=== PATIENT | male | born 1995 | race Caucasian/White ===

== ENCOUNTER 2024-05-23 16:19 | Emergency (ER) | payer OTHER, SELFPAY ==
[2024-05-23 16:22] VITALS: BP 136/95; PULSE 130; RESP 24; TEMP 37; O2SAT 99; BMI 21.7
--- NOTE | 2024-05-23 16:28 | ED.CHESTPAIN ---
HPI - Chest Pain General Time Seen by Provider: 16:28 Date Seen: 05/28/24 Chief Complaint: Chest Pain Stated Complaint: fall - rib pain - SOB Time Seen by Provider: 05/23/24 16:27 Source: patient, RN notes reviewed and old records reviewed Mode of arrival: ambulatory Limitations: no limitations History of Present Illness HPI narrative: Buttock 28-year-old male who comes in today with chest pain after a fall. Patient reports he fell 6 days ago landing on his right side him. Sent pain since then with occasional shortness of breath but today increased pain and also some lightheadedness. Denies nausea, vomiting, hematuria. Has not taken anything for symptoms. Denies cough or hemoptysis. Related Data Home Medications ?Medication ?Instructions ?Recorded ?Confirmed No Known Home Medications 05/23/24 05/23/24 Allergies Allergy/AdvReac Type Severity Reaction Status Date / Time morphine AdvReac Mild Verified 05/23/24 16:26 Exam Narrative Exam Narrative: General: Well-developed and well-nourished, no acute distress Head: Atraumatic and normocephalic Eyes: Pupils are equal reactive, extraocular motions intact, conjunctiva clear ENT: External nose and ears are normal, posterior pharynx without erythema or exudate Neck: No midline cervical tenderness, full spontaneous range of motion the neck, trachea midline, no adenopathy Heart: Regular rate and rhythm no murmurs or thrills Lungs: Clear to auscultation bilaterally without wheezes or crackles, right anterior chest wall tenderness Abdomen: Soft, right upper quadrant tenderness,, nondistended with active bowel sounds Musculoskeletal: No tenderness, deformity, or edema Neurologic: Awake, alert, and oriented x3, no gross focal neurologic deficits, cranial nerves intact as tested Psych: Mood and affect are appropriate Skin: No rashes Const Vital Signs, click to edit/add: Vital Signs - 24 hr 05/23/24 16:22 05/23/24 17:38 05/23/24 17:45 Temperature 98.6 F Pulse Rate 86 90 Pulse Rate [Pulse Oximeter] 130 H Respiratory Rate 24 Blood Pressure [Right Upper Arm] 136/95 H Pulse Oximetry 99 99 99 Oxygen Delivery Method Room Air 05/23/24 18:00 05/23/24 18:15 Temperature Pulse Rate 85 84 Pulse Rate [Pulse Oximeter] Respiratory Rate Blood Pressure [Right Upper Arm] Pulse Oximetry 93 99 Oxygen Delivery Method Course Course ED Course: Patient seen and examined, reviewed prior emergency department visit from July 2021 which was for headache which is treated symptomatically and patient discharged. Patient presents today with right upper quadrant and right chest wall tenderness after a fall 6 days ago. Notes some shortness of breath and pain with breathing, also some lightheadedness today. On exam, patient is tachycardic, oxygen saturation 99%. Lung sounds bilaterally, right anterior chest wall and right upper quadrant tenderness. Concern for possible pneumothorax, hemothorax, liver laceration, solid organ or soft tissue injury of the abdomen, rib fractures. Labs ordered along with CT scan of the chest, abdomen, and pelvis to evaluate for thoracic and intra-abdominal injury. Dilaudid IV ordered for pain. EKG independently interpreted by me performed at 4:37 p.m. demonstrates sinus rhythm rate 94, no acute ST elevations or depressions, normal intervals, right axis deviation, no acute ischemic changes, SC 146, QTC 435, no prior for comparison. Reevaluation(s) Time of Reevaluation #1: 17:26 Reevaluation #1: Labs ordered and independently interpreted by me as normal CBC, normal hepatic panel, normal basic panel. CT scan of chest independently interpreted by me does not demonstrate acute hemothorax or pneumothorax, no rib fractures.. CT scan of the abdomen and pelvis does not demonstrate acute intra-abdominal pathology, no splenic or liver laceration, no hollow organ injury. Time of Reevaluation #2: 18:35 Reevaluation #2: Reviewed radiology interpretation of CT scan which does not demonstrate any acute traumatic findings, mild wall thickening of the ascending and transverse colon which may represent mild colitis, patient has no leukocytosis, no diarrhea, no fever but does have some right-sided abdominal tenderness. Stable for discharge with continued symptom management and follow-up with primary care. Vital Signs Vital signs: Initial Vital Signs Temperature 98.6 F 05/23/24 16:22 Temperature Source Oral 05/23/24 16:22 Pulse Rate 130 H 05/23/24 16:22 Pulse Rhythm Irregular 05/23/24 16:22 Respiratory Rate 24 05/23/24 16:22 Blood Pressure 136/95 H 05/23/24 16:22 Blood Pressure Mean 108 H 05/23/24 16:22 Blood Pressure Position Sitting 05/23/24 16:22 Pulse Oximetry 99 05/23/24 16:22 Oxygen Delivery Method Room Air 05/23/24 16:22 Vital Signs Temperature 98.6 F 05/23/24 16:22 Pulse Rate 130 H 05/23/24 16:22 Respiratory Rate 24 05/23/24 16:22 Blood Pressure 136/95 H 05/23/24 16:22 Pulse Oximetry 99 05/23/24 16:22 Oxygen Delivery Method Room Air 05/23/24 16:22 Temperature 98.6 F 05/23/24 16:22 Pulse Rate 84 05/23/24 18:15 Respiratory Rate 24 05/23/24 16:22 Blood Pressure 136/95 H 05/23/24 16:22 Pulse Oximetry 99 05/23/24 18:15 Oxygen Delivery Method Room Air 05/23/24 16:22 Medications Administered Medications: Discontinued Medications Generic Name Dose Route Start Last Admin Trade Name Freq PRN Reason Stop Dose Admin Sodium Chloride 1,000 mls @ 1,000 mls/hr 05/23/24 16:45 05/23/24 18:15 0.9 % Sodium Chloride 1000 Ml IV 05/23/24 17:44 Infused .Q1H PITA Infusion MDM - Chest Pain Lab Data Labs: Lab Results 05/23/24 Range/Units 16:48 WBC 6.77 (4.50-11.00) K/uL RBC 5.48 (4.30-5.90) m/uL Hgb 16.4 (13.5-17.5) gm/dL Hct 48.2 (37.0-53.0) % MCV 88 (80-100) fL MCH 30 (26-34) pg MCHC 34 (32-36) gm/dL RDW Coeff of [place] 12.3 (11.5-15.5) % Plt Count 228 (140-440) K/uL Neut % (Auto) 59.8 (42.0-72.0) % Lymph % (Auto) 26.9 (20-44) % [place] % (Auto) 10.9 (0.0-11.0) % Eos % (Auto) 2.1 (0.0-7.0) % Baso % (Auto) 0.3 (0.0-3.0) % Neut # (Auto) 4.05 (1.7-7.0) K/uL Lymph # (Auto) 1.82 (0.90-2.90) K/uL [place] # (Auto) 0.70 (0.00-0.90) K/UL Eos # (Auto) 0.14 (0.00-0.50) K/uL Baso # (Auto) 0.02 (0.00-0.30) K/uL Abs Immat Gran (auto) 0.00 (0.00-0.30) K/uL Imm/Tot Granulo (auto) 0.0 % Sodium 139 (135-149) mmol/L Potassium 3.8 (3.6-5.1) mmol/L Chloride 103 (96-114) mmol/L Carbon Dioxide 26 (20-32) mmol/L Anion Gap 10 (7-15) mEq/L BUN 13 (5-24) mg/dL Creatinine 0.9 (0.5-1.5) mg/dL Estimated Creat Clear 123.20 Estimated GFR 118 ml/min Glucose 100 (60-115) mg/dL Calcium 9.6 (8.4-10.6) mg/dL Total Bilirubin 0.7 (0.1-1.5) mg/dL Direct Bilirubin 0.3 (0.0-0.5) mg/dL AST 34 (12-35) U/L ALT 39 (4-50) U/L Alkaline Phosphatase 62 (40-150) U/L Total Protein 7.8 (6.0-8.3) g/dL Albumin 5.0 (3.3-5.0) g/dL Blood Type A Positive Antibody Screen NEGATIVE Discharge Plan Discharge Clinical Impression: Chest wall contusion, Costochondritis Patient Disposition: Home, Self-Care Condition: Stable Instructions: Rib Contusion (ED) Additional Instructions: Tylenol and ibuprofen as needed for pain. Oxycodone for more severe pain. Make sure drinking plenty of fluids. Activity as tolerated. Activity Level: Activity as Tolerated Discharge Diet: Regular Prescriptions: No Action No Known Home Medications Follow Up/Referrals: Provider,Not a Local [Primary Care Provider] - Stand Alone Forms: [employer] Info Instructions
--- NOTE | 2024-05-23 16:34 | CRLHL7_ITS ---
For Patients: As a result of the Century Cures Act, medical imaging exams and procedure reports are released immediately into your electronic medical record. You may view this report before your referring provider. If you have questions, please contact your health care provider. INDICATION: Fall, right upper quadrant pain, rib pain. TECHNIQUE: CT of the chest, abdomen, and pelvis acquired with 79 cc of Isovue 370 IV contrast. Coronal and sagittal reconstructions. COMPARISON: None. FINDINGS: CHEST: Cardiovascular structures: Normal heart size. Normal caliber thoracic aorta and central pulmonary arteries. No large central pulmonary embolism. Mediastinum and rich: No pathologically enlarged lymph nodes. No pericardial effusion or mediastinal hematoma. The imaged thyroid gland appears normal. Lungs and pleura: No focal consolidation, pleural effusion, or pneumothorax. No suspicious pulmonary nodules. No central endobronchial lesion or significant bronchial wall thickening. Chest wall: No mass or adenopathy. Bones: Unremarkable. No acute fracture identified. ABDOMEN/PELVIS: Liver: Normal in size and attenuation. No focal liver lesions. Hepatic and portal veins are patent. Gallbladder and bile ducts: Unremarkable. No biliary dilation. Spleen: Unremarkable. Pancreas: Unremarkable. Adrenal glands: Unremarkable. Kidneys, Ureters, and Bladder: Symmetric enhancement. No hydronephrosis or ureteral dilation. No obstructing urinary calculi. No bladder wall thickening. Reproductive structures: Unremarkable. GI tract/Peritoneum: No small bowel dilation. Mild wall thickening of the ascending and transverse colon may represent a nonspecific colitis. Colonic diverticulosis without evidence of diverticulitis. Negative appendix. No intraperitoneal free air or fluid. Vasculature: Abdominal aorta is normal in caliber. Mesenteric arteries are patent. Lymph nodes: No lymphadenopathy. Abdominal wall: Unremarkable. Bones: Schmorl`s node in the inferior endplate of the L1 vertebral body. No acute fracture identified. IMPRESSION: 1. Mild wall thickening of the ascending and transverse colon may represent a nonspecific colitis. 2. No other acute findings in the chest, abdomen, or pelvis. Please note that all CT scans at this facility use dose modulation, iterative reconstruction, and/or weight-based dosing when appropriate to reduce radiation dose to as low as reasonably achievable. Dictated by Cecilia Berrios MD @ 05/23/2024 6:32:00 PM (Electronically Signed)
[2024-05-23 16:54] LABS: Basophils Absolute Auto 0.02 K/uL (0.00-0.30); Basophils Percent Auto 0.3 % (0.0-3.0); Eosinophils Absolute Auto 0.14 K/uL (0.00-0.50); Eosinophils Percent Auto 2.1 % (0.0-7.0); Hematocrit 48.2 % (37.0-53.0); Hemoglobin* 16.4 gm/dL (13.5-17.5); Lymphocytes Absolute Auto 1.82 K/uL (0.90-2.90); Lymphocytes Percent Auto 26.9 % (20-44); Mean Corpuscular HGB Conc 34 gm/dL (32-36); Mean Corpuscular Hemoglobin 30 pg (26-34); Mean Corpuscular Volume 88 fL (80-100); Monocytes Percent Auto 10.9 % (0.0-11.0); Neutrophils Absolute Auto 4.05 K/uL (1.7-7.0); Neutrophils Percent Auto 59.8 % (42.0-72.0); Platelet Count* 228 K/uL (140-440); RDW Coefficient of Variation % 12.3 % (11.5-15.5); Red Blood Count 5.48 m/uL (4.30-5.90); White Blood Count* 6.77 K/uL (4.50-11.00)
[2024-05-23 17:00] LABS: Slide Review Reflex No
[2024-05-23 17:07] LABS: Chloride* 103 mmol/L (96-114)
[2024-05-23 17:08] LABS: Potassium* 3.8 mmol/L (3.6-5.1); Sodium* 139 mmol/L (135-149)
[2024-05-23 17:10] LABS: Alkaline Phosphatase* 62 U/L (40-150); Anion Gap 10 mEq/L (7-15); Aspartate Amino Transferase* 34 U/L (12-35); Bilirubin Direct* 0.3 mg/dL (0.0-0.5); Bilirubin Total* 0.7 mg/dL (0.1-1.5); Blood Urea Nitrogen* 13 mg/dL (5-24); Carbon Dioxide* 26 mmol/L (20-32); Creatinine* 0.9 mg/dL (0.5-1.5); Estimated Glomerular Filt Rate 118 ml/min; Total Protein* 7.8 g/dL (6.0-8.3)
[2024-05-23 17:11] LABS: Alanine Aminotransferase* 39 U/L (4-50); Calcium* 9.6 mg/dL (8.4-10.6); Glucose* 100 mg/dL (60-115)
[2024-05-23] MEDS: 0.9 % SODIUM CHLORIDE 1000 ml 1,000 ML IV (17:30)
[2024-05-23 17:38] VITALS: PULSE 86; O2SAT 99
[2024-05-23 17:45] VITALS: PULSE 90; O2SAT 99
[2024-05-23 18:00] VITALS: PULSE 85; O2SAT 93
[2024-05-23 18:15] VITALS: PULSE 84; O2SAT 99
[2024-05-23 18:30] VITALS: PULSE 76; O2SAT 100
== END 2024-05-23 18:48 | disposition home or self-care (01) ==
PROVIDERS: Emergency Provider Family Medicine
DX: S20.211A Contusion of right front wall of thorax, initial encounter (principal); M94.0 Chondrocostal junction syndrome [Tietze]; W19.XXXA Unspecified fall, initial encounter
CPT/HCPCS: 36415; 71260; 74177; 80048; 80076; 85025; 86850; 86900; 86901; 94761; 96374; 99284; 99285; J7030; Q9967